=== PATIENT | male | born 1940 | race Hispanic/Latino ===

== ENCOUNTER 2018-07-07 13:57 | Inpatient (IN) | payer BC, MEDICAID ==
[~2018-07-07 13:57] MED LIST: ISOVUE-370 76%-LOCM 1 ML ONE
[2018-07-07] MEDS ORDERED: niCARdipine 20MG In NaCl 20 MG/200 ML BAG ONE (14:10)
[2018-07-07] MEDS ORDERED: Nitroglycerin 50 MG/250 ML BOT 250 ML ONE (14:10)
[2018-07-07 14:28] LABS: #Basophils 0.1 thou/uL (0.0-0.2); #Eosinphils 0.4 thou/uL (0.0-0.7); #Lymphocytes 3.2 thou/uL (1.20-3.40); #Monocytes 0.4 thou/uL (0.11-0.59); %Basophils 1.2 % (0.0-1.0); %Eosinophils 5.3 % (0.0-10.0); %Lymphocytes 44.6 % (21.0-51.0); Hemoglobin 12.3 g/dL (14.0-18.0); Mean Corpuscular HGB CONC 33.3 g/dL (32.0-36.0); Mean Corpuscular Hemoglobin 33.4 pg (27.0-31.0); Mean Platelet Volume 9.8 fL (7.4-10.4); Platelet Count 145 thou/uL (130-400); RBC Distribution Width 13.5 % (11.5-14.5); Red Blood Cell (RBC) Count 3.69 mill/uL (4.70-6.10); White Blood Cell (WBC) Count 7.1 thou/uL (4.8-10.8)
[2018-07-07 14:41] LABS: ALT (SGPT) 13 U/L (8-55); AST (SGOT) 10 U/L (5-34); Alkaline Phosphatase 99 U/L (40-150); Anion Gap 17 mmol/L (10-20); BUN (Urea Nitrogen) 41 mg/dL (8.4-25.7); CK (CPK) 95 U/L (30-200); Calc. Creatinine Clearance 0 mL/min (70-130); Calcium 9.5 mg/dL (7.8-10.44); Carbon Dioxide 28 mmol/L (23-31); Chloride 96 mmol/L (98-107); Estimated GFR-MDRD 7; Globulin 4.8 g/dL (2.4-3.5); Glucose 145 mg/dL (83-110); Protein, Total 8.8 g/dL (5.8-8.1); Sodium 138 mmol/L (136-145)
--- NOTE | 2018-07-07 14:42 | CT ---
HEAD CT NONCONTRAST: Date: 07/07/18 INDICATION: Altered mental status. FINDINGS: There is abnormal hyperdensity centered about the third ventricle compatible with acute intraventricu lar hemorrhage, as well as subarachnoid extension. There is acute hemorrhage also occupying the fourt h ventricle. There is mild parenchymal atrophy increasing CSF space overlying the convexities bilaterally. Probabl e thin linear calcific density accounts for hyperdensity along the interhemispheric falx. There is mi ld chronic microvascular ischemic disease. No evidence of calvarial fracture. Numerous probable benig n and vascular in etiology lucencies are seen within the calvarium. 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 Telephone call to care provider, Sarah Wick, placed at 1425 hours on 07/07/18. CODE CR. POS: [facility]
[2018-07-07 14:46] LABS: Prothrombin Time 13.1 SEC (12.0-14.7)
[2018-07-07] MEDS ORDERED: Ondansetron PF 4 MG/2 ML Vial ONE (14:59)
--- NOTE | 2018-07-07 15:43 | CT ---
CT ANGIOGRAM OF HEAD: Date: 07/07/18 HISTORY: Headache. Intraventricular and subarachnoid hemorrhage noted on CT. COMPARISON: Noncontrast head CT dated 07/07/18. TECHNIQUE: CT angiogram of the head is performed in the axial plane. Three-dimensional reformatted images are bob bmitted for interpretation. FINDINGS: Calvarium is intact. There is adequate aeration of the sinuses and mastoid air cells. There is no pat hologic enhancement of the brain parenchyma. Cortical giang-white matter differentiation is preserved. Hypoattenuation of the right subinsular white matter and left subinsular white matter is presumed to be due to chronic process. The previously noted intraventricular and subarachnoid hemorrhage is again demonstrated in the third ventricle, fourth ventricle, right posterior ambient cistern, right cerebellopontine angle cistern, a nd the right aspect of the suprasellar cistern. The overall degree and distribution of subarachnoid h emorrhage is stable. There is no midline shift. Basilar cisterns are patent. CT ANGIOGRAM: The distal cervical internal carotid arteries have symmetric enhancement and luminal diameter. The in tracranial internal carotid arteries have appropriate enhancement and luminal diameter. There is athe rosclerosis involving bilateral cavernous segments. Anterior Circulation: Both A1 and M1 segments have symmetric enhancement and luminal diameter. Proximal A2 segments and pro ximal MCA branches are essentially symmetric. No evidence of aneurysm in the expected region of eithe r PCOM. No evidence of aneurysm in the anterior circulation. Posterior Circulation: The distal cervical vertebral arteries are patent. There is atherosclerosis involving both intracrani al vertebral arteries. Limited evaluation of both PICA artery origins. Both vertebral arteries supply a normal appearing basilar artery. The left and right P1 segments have appropriate enhancement and l uminal diameter. No evidence of stenosis or aneurysm. IMPRESSION: 1. Redemonstration of intraventricular and subarachnoid hemorrhage. 2. No evidence of aneurysm in the anterior circulation or posterior circulation. There is no aneurys m in the expected region of either posterior communicating artery. Short-term follow-up imaging with either repeat CT angiogram of the head or conventional angiography is recommended, along with neurosu rgical consultation. POS: [facility]
[2018-07-07] MEDS ORDERED: Ondansetron PF 4 MG/2 ML Vial IVP PRN (16:49)
[2018-07-07] MEDS ORDERED: Mag-Al 1200 mg/1200 mg/30 ML UDCUP PO PRN (16:49)
[2018-07-07] MEDS ORDERED: Milk Of Magnesia 30 ML UDCUP PO PRN (16:49)
[2018-07-07] MEDS ORDERED: Morphine 4 MG/ML VIAL SLOW IVP PRN (16:55)
[2018-07-07] MEDS ORDERED: Promethazine HCl 25 MG/ML VIAL IM PRN (17:11)
[2018-07-07] MEDS: HYDROcodone/Acetaminophen 5/325 mg Tablet PO PRN (19:21)
[2018-07-07] MEDS: Promethazine 25 MG TAB PO PRN (19:23)
[2018-07-07] MEDS: niCARdipine HCl 25 MG in Sodium Chloride 0.9% 250 ML 240 ML IVPB PRN (19:31)
[2018-07-07] MEDS: Sodium Bicarbonate Tab 325 MG TAB PO SCH (21:25)
[2018-07-07] MEDS: cloNIDine 0.1 MG TAB PO SCH (22:31)
[2018-07-08] MEDS: niCARdipine HCl 25 MG in Sodium Chloride 0.9% 250 ML 240 ML IVPB PRN ×2 (00:55→16:56)
--- NOTE | 2018-07-08 00:57 | HP ---
ATTENDING PHYSICIAN: Dr. Juan M Street. HISTORY OF PRESENT ILLNESS: The patient is a 78-year-old male with past medical history of hypertension and end-stage renal disease on dialysis, who presented to the emergency department following acute onset of severe headache and vomiting approximately 45 minutes prior to arrival. Upon initial arrival, CT head was done by the emergency department, which was notable for diffuse subarachnoid hemorrhage. The patient was also noted to have significant elevation of his blood pressure with systolic blood pressure greater than 300 on a manual blood pressure. He was treated with nitro as well as a Cardene drip with improvement of this. Neurosurgery was consulted for further evaluation of his acute subarachnoid hemorrhage. I reviewed the films with Dr. Street and he recommended CTA for further evaluation. CTA was also done within the emergency department which was negative for any vascular abnormality. He reports some mild headache and persistent nausea, but is no longer having any active vomiting. He has a GCS of 15, AOX4, and has no focal neurologic deficits on my exam. His blood pressure has improved and is now systolic of 176/65. PAST MEDICAL HISTORY: Hypertension, end-stage renal disease, on dialysis. PAST SURGICAL HISTORY: Fistula to the right arm. SOCIAL HISTORY: He lives at home with his family. He does not smoke, drink, or use any drugs. ALLERGIES: HE HAS NO KNOWN DRUG ALLERGIES. REVIEW OF SYSTEMS: Per HPI. CURRENT MEDICATIONS: 1. Sevelamer 800 mg tab. 2. Clonidine 0.2 mg tab. PHYSICAL EXAMINATION: VITAL SIGNS: Heart rate is 81, blood pressure 176/65. The patient is 100% on room air. CONSTITUTIONAL: Awake, alert, no acute distress. GCS 15. HEENT: Head, normocephalic and atraumatic. Eyes, PERRLA. Extraocular movements intact. ENT; oral mucosa is pink, intact, and moist. The patient has normal voice. NECK: Nontender to palpation. Free active range of motion. No meningismus or nuchal rigidity. RESPIRATORY: Symmetric chest expansion. No evidence of dyspnea. CARDIOVASCULAR: Regular rate and rhythm. MUSCULOSKELETAL: Free active range of motion of all extremities. No focal motor weakness. No reflex asymmetry. NEUROLOGIC: A and O x4. GCS 15. No focal neurologic deficits are appreciated on my exam. ASSESSMENT AND PLAN: This is a 78-year-old male with a past medical history of hypertension, end-stage renal disease, who presented with diffuse subarachnoid hemorrhage, which was CTA negative for aneurysm. We will plan to admit him to the critical care unit where his blood pressure will be monitored closely with a systolic blood pressure goal of less than 160. We will keep him on a Cardene drip at this time and titrate as needed. We will elevate the head to 30 degrees and plan on q.1 neuro checks to regularly assess his neurologic exam. I have consulted the Medicine and Critical Care service for assistance with medical management and also his oncologist to assist with any dialysis needs. Will repeat am CT head. I have discussed this plan with Dr. Street, who is in agreement. Job ID: [id number] MTDD
--- NOTE | 2018-07-08 04:41 | CON ---
DATE OF CONSULTATION: CONSULTING PHYSICIAN: Taj Li MD REQUESTING PHYSICIAN: ER physician. REASON FOR CONSULTATION: Need for maintenance hemodialysis. IMPRESSION: 1. End-stage renal disease, hemodialysis dependent. 2. Hypertensive emergency. 3. Subarachnoid hemorrhage. PROBLEM: monitor hemodynamics closely HISTORY OF PRESENT ILLNESS: This is a 78-year-old with end-stage renal disease with INCOMPLETE DICTATION Job ID: [id number]
[2018-07-08 05:11] LABS: #Eosinphils 0.1 thou/uL (0.0-0.7); #Lymphocytes 0.9 thou/uL (1.20-3.40); #Monocytes 0.4 thou/uL (0.11-0.59); #Neutrophils 3.5 thou/uL (1.40-6.50); %Basophils 0.3 % (0.0-1.0); %Eosinophils 1.2 % (0.0-10.0); %Lymphocytes 18.2 % (21.0-51.0); %Monocytes 8.2 % (0.0-10.0); %Neutrophils 72.1 % (42.0-75.0); Hemoglobin 9.8 g/dL (14.0-18.0); Mean Corpuscular HGB CONC 33.5 g/dL (32.0-36.0); Mean Corpuscular Hemoglobin 33.5 pg (27.0-31.0); Mean Platelet Volume 9.6 fL (7.4-10.4); Platelet Count 126 thou/uL (130-400); RBC Distribution Width 13.7 % (11.5-14.5); Red Blood Cell (RBC) Count 2.92 mill/uL (4.70-6.10); White Blood Cell (WBC) Count 4.9 thou/uL (4.8-10.8)
[2018-07-08 05:37] LABS: Anion Gap 14 mmol/L (10-20); BUN (Urea Nitrogen) 48 mg/dL (8.4-25.7); Calc. Creatinine Clearance 6 mL/min (70-130); Calcium 8.7 mg/dL (7.8-10.44); Carbon Dioxide 30 mmol/L (23-31); Chloride 97 mmol/L (98-107); Estimated GFR-MDRD 6; Glucose 80 mg/dL (83-110); Potassium 4.4 mmol/L (3.5-5.1); Sodium 137 mmol/L (136-145)
--- NOTE | 2018-07-08 07:47 | HP ---
PRIMARY CARE DOCTOR: Dr. Downs. CODE STATUS: Full code. TIME OF EVALUATION: 9:00 p.m. CHIEF COMPLAINT: Severe headache. HISTORY OF PRESENT ILLNESS: This is a 78-year-old male patient, with past medical history of end-stage renal disease, hypertension, came to the hospital after having severe headache that was not relieving with any factors, the patient also related nausea, vomiting, he reported he was getting ready for some friend's arrangements for a family member and the symptoms started gradually getting worse during the day , no clear triggers, no other alleviating factors. He was found to have a subarachnoid hemorrhage and has been admitted to ICU for hypertensive emergency. He has been followed by Neurosurgery, we have been consulted for recommendations regarding rest of home medications and blood pressure control. The headache was new, 10/10. REVIEW OF SYSTEMS: CONSTITUTIONAL: No fever, chills, or generalized weakness. RESPIRATORY: No cough, sputum production, or shortness of breath. CARDIOVASCULAR: No chest pain or palpitations. GASTROINTESTINAL: The patient reported nausea, vomiting associated with a headache, no diarrhea, no abdominal pain. NEIGHBORHOOD COORDINATOR: Severe headache, dizziness, lightheadedness. GENITOURINARY: No burning on urination. EXTREMITIES: No leg swelling. All other systems were reviewed and negative except for the findings mentioned above. PAST MEDICAL HISTORY: Positive for hypertension, history of renal disease, on hemodialysis. SURGICAL HISTORY: Fistula of the right arm. SOCIAL HISTORY: The patient lives with grandson. ALLERGIES: NO KNOWN DRUG ALLERGIES. FAMILY HISTORY: Reviewed and noncontributory for current presentation. REPORTED MEDICATIONS: Sevelamer carbonate and Cardene. PHYSICAL EXAMINATION: VITAL SIGNS: On presentation, blood pressure 300/115, with heart rate 74, respiratory rate was 18. Pain was 10/10. Oxygen saturation was 96 on room air. GENERAL APPEARANCE: The patient is alert, oriented, not in acute distress. HEENT: Eyes, normal conjunctivae. Moist oral mucosa. Anicteric. No JVD. RESPIRATORY: Bilateral air entry. No rales. No wheezing. Symmetric expansion. CARDIOVASCULAR: Normal rate. Regular rhythm. No murmurs. No gallops. No edema. The patient is still on Cardene drip during my examination. ABDOMEN: Soft, normal bowel sounds. MUSCULOSKELETAL: Baseline range of motion and strength with no tenderness. SKIN: Warm and intact. No burn or rash. No redness. EXTREMITIES: Peripheral pulses are present. Capillary refill seems to be intact. NEURO: No evidence of any new focal weakness. Baseline speech. Cranial nerves seems to be intact. PSYCHIATRIC: Good mood. No anxiety. Oriented, optimal judgment. DIAGNOSTIC DATA: EKG was reviewed. The patient has a normal sinus rhythm with a rate of 74, incomplete RBBB, nonspecific ST and T-wave abnormalities. Radiology: Preliminary review of CT, Radiology's finding which favors sequela from acute ruptured aneurysm possibly the right posterior communicating artery. Given the origin of the hemorrhage, however, recommend that he get angiographic followup for confirmation as well as neurosurgical consultation. LABORATORY DATA: Reviewed. The patient had white count 7.1, hemoglobin 12.3, hematocrit 37, platelet count 145. Coagulation was normal. Chemistries: Sodium 138, potassium 3.0, chloride 96, carbon dioxide 28, anion gap 17, BUN 41, creatinine 7.8, GFR 7, glucose 145. Troponin 0.045. ASSESSMENT AND PLAN: The patient was placed in the hospital with the following medical problems under the care of Neurosurgery: 1. Critical care time more than 35 minutes. 2. Hypertensive emergency. The patient presented with intracranial bleeding and blood pressure 300+/115, patient was placed on Cardene drip, blood pressure has been controlled and systolics now 132, we will start p.o. medications and if needed we will add Cardene drip, then reassess to taper off Cardene. Neurosurgery is following this morning for recommendations in that regard. 3. Mildly elevated troponin 0.045, , mostly likely this is due to hypertensive emergency, no chest pain has been reported by the patient so far. 4. Hypokalemia, potassium 3.0: This is mild. We will replace electrolytes as needed. 5. End-stage renal disease on hemodialysis: The patient will need hemodialysis, he follows with Dr. Vang. 6. Intracranial bleeding: Presented with subarachnoid hemorrhage, neurosurgery indicates treating this problem. RISK ASSESSMENT: The patient is a high risk due to intracranial bleeding. Job ID: [id number] MTDD
[2018-07-08] MEDS: Acetaminophen 325 MG TAB PO PRN (08:28)
--- NOTE | 2018-07-08 08:30 | CT ---
PRELIMINARY REPORT/[facility]/EMERGENTY AFTER-HOURS PROCEDURE CT Head Without Contrast EXAM DATE/TIME: 07/08/2018 3:27 AM CLINICAL HISTORY: 78 years old, male; Condition or disease; Other: Sah; Patient HX: F/u sah TECHNIQUE: Axial computed tomography images of the head/brain without contrast. COMPARISON: CT Brain WO Con 07/07/2018 2:24 PM FINDINGS: Brain: Small amount of subarachnoid hemorrhage in the bilateral temporal/posterior frontal lobes was not present on prior study and may be due to persistent hemorrhage or redistribution of blood. Stable chronic ischemic change. Stable volume loss of the brain. Midline shift: No midline shift. Ventricles: Stable hemorrhage superior to the third ventricle in the region of the fornix/septum errol ucidum. Stable basilar subarachnoid hemorrhage. Stable blood in the fourth ventricle. Trace blood in the dependent lateral ventricles is new compared to the prior study. Stable ventricles. Bones/joints: Normal. No acute fracture. Sinuses: Normal as visualized. No acute sinusitis. Mastoid air cells: Normal as visualized. No mastoid effusion. Soft tissues: Normal. IMPRESSION: Small amount of subarachnoid hemorrhage in the bilateral temporal/posterior frontal lobes was not pre sent on prior study and may be due to persistent hemorrhage or redistribution of blood. Trace blood i n the dependent lateral ventricles is new compared to the prior study, likely due to redistribution of blood. Remainder of hemorrhage is stable. Thank you for allowing us to participate in the care of your patient. Dictated and Authenticated by: Sincere Lao MD 07/08/2018 3:52 AM Central Time ([place] & [place]) FINAL REPORT HEAD CT NONCONTRAST: FINDINGS/IMPRESSION: Agree with the preliminary interpretation provided above. Reference is made to the 07/07/[address] Recommend continued imaging followup. POS: [facility]
[2018-07-08] MEDS: Calcitriol 0.25 MCG CAP PO SCH (08:31)
[2018-07-08] MEDS: cloNIDine 0.1 MG TAB PO SCH ×2 (08:31→20:43)
[2018-07-08] MEDS: Ferrous Sulfate 325 MG TAB PO SCH (08:31)
[2018-07-08] MEDS: Sodium Bicarbonate Tab 325 MG TAB PO SCH ×2 (08:31→20:43)
[2018-07-08] MEDS: Lisinopril 20 MG TAB PO SCH (08:31)
--- NOTE | 2018-07-08 10:20 | PRG ---
DATE OF SERVICE: 07/08/2018 SURGEON: Juan M Street MD. SUBJECTIVE: This patient was seen and examined. I agree with Rebecca Garcia's evaluation on 07/07/2018. The patient is a 78-year-old male with end-stage renal disease, who had sudden onset of severe headache and hypertensive crisis. CT scan reveals diffuse subarachnoid hemorrhage localized to the fourth ventricle and posterior fossa in particular. CT angiography is negative for intracranial aneurysm. Repeat CT scan this morning is unchanged. The patient is alert and generally appropriate, although he is Frisian-speaking only. He has no focal deficit. IMPRESSION AND PLAN: Angiographically negative subarachnoid hemorrhage. We will continue with ICU care today, advance his diet and activity, and continue with blood pressure control. Job ID: [id number]
--- NOTE | 2018-07-08 18:37 | PDOC.PN ---
- Subjective Encounter Start Date: 07/08/18 Encounter Start Time: 18:30 Subjective: f/u for SAH secondary to HTN emergency on Cardene gtt. Some residual -: IGLESIAS but improved. - Objective MAR Reviewed: Yes Vital Signs & Weight: Vital Signs (12 hours) Temp Pulse Pulse BP BP BP Pulse Ox 07/08/18 16:00 98.1 F 07/08/18 12:00 98.7 F 07/08/18 10:34 55 L 65 117/55 L 161/70 H 07/08/18 08:50 68 75 170/78 H 152/67 H 07/08/18 08:31 179/92 H 07/08/18 07:34 96 Pulse Ox Pulse Ox 07/08/18 16:00 07/08/18 12:00 07/08/18 10:34 99 100 07/08/18 08:50 99 99 07/08/18 08:31 07/08/18 07:34 Weight Weight 127 lb 13.89 oz Most Recent Monitor Data Heart Rate from ECG 67 NIBP 130/66 NIBP BP-Mean 87 Respiration from ECG 14 SpO2 98 I&O: 07/07/18 07/08/18 07/09/18 06:59 06:59 06:59 Intake Total 477 636 Output Total 100 0 Balance 377 636 Result Diagrams: 07/08/18 04:57 07/08/18 04:57 Additional Labs: Laboratory Tests 07/07/18 07/07/18 07/07/18 14:12 14:12 14:12 Hgb 12.3 L Potassium 3.0 L Creatinine 7.80 H Troponin I 0.045 H Radiology Reviewed by me: Yes (CT brain - SAH similar to previous study) EKG Reviewed by me: Yes (Tele - SR) Phys Exam - Physical Examination Constitutional: NAD HEENT: PERRLA, sclera anicteric, oral pharynx no lesions Neck: no nodes, no JVD, supple, full ROM Respiratory: no wheezing, no rales, no rhonchi, clear to auscultation bilateral S1, S2 Cardiovascular: RRR, no significant murmur, no rub, gallop Gastrointestinal: soft, non-tender, no distention, positive bowel sounds Musculoskeletal: no edema, pulses present Neurological: normal sensation, moves all 4 limbs Psychiatric: A&O x 3 Skin: normal turgor, cap refill <2 seconds Dx/Plan (1) Hypertensive emergency Code(s): I16.1 - HYPERTENSIVE EMERGENCY Status: Acute Comment: Continue Cardene gtt, resume home BP regimen and titrate to optimal response (2) Subarachnoid hemorrhage Code(s): I60.9 - NONTRAUMATIC SUBARACHNOID HEMORRHAGE, UNSPECIFIED Status: Acute Comment: Secondary to #1, medical mgmt currently, serial CT imaging (3) Hypokalemia Code(s): E87.6 - HYPOKALEMIA Status: Acute Comment: CCU electrolyte replacement protocol, serial K+ monitoring (4) End stage renal disease on dialysis Code(s): N18.6 - END STAGE RENAL DISEASE; Z99.2 - DEPENDENCE ON RENAL DIALYSIS Status: Chronic Comment: HD per Renal service - Plan PT/OT, family welfare social work professor, DVT proph w/SCDs Continue aggressive support -: Cardene gtt -: Resume home BP regimen -: HD per Renal service -: AM lab: BMP, CBC * .
--- NOTE | 2018-07-08 20:52 | CON ---
DATE OF CONSULTATION: 07/08/2018 SERVICE: Pulmonary Medicine. REASON FOR CONSULT: ICU patient. HISTORY OF PRESENT ILLNESS: The patient is a 78-year-old male with past medical history significant for end-stage renal disease and hypertension. He was in his usual state of health until the 07 of July when he had a sudden onset of severe headache. Ultimately, he presented to the emergency department and a CT of the head was done demonstrating diffuse subarachnoid hemorrhage. Overnight, he ended up going through a diagnostic procedure, which did not demonstrate any significant aneurysmal lesion. As such, he is in the ICU with close blood pressure monitoring. His neurological exam remains nonfocal. His headache has actually little improved compared to presentation. He currently denies any fevers or chills. Overnight events were not present. PAST MEDICAL HISTORY: 1. End-stage renal disease. 2. Hypertension. 3. History of subarachnoid hemorrhage. 4. Anemia of chronic renal disease. PAST SURGICAL HISTORY: 1. AV fistula. 2. Prior temporary dialysis catheter in the right chest wall with subsequent removal. SOCIAL HISTORY: Negative for alcohol, tobacco, or illicit drug use. FAMILY HISTORY: Noncontributory. ALLERGIES: NO KNOWN DRUG ALLERGIES. MEDICATIONS: List of his inpatient medications was reviewed. No specific updates were made at this time. REVIEW OF SYSTEMS: General; head, ears, eyes, nose, throat; cardiovascular; respiratory; GI; ; musculoskeletal; neurologic; and skin are negative except as mentioned in the HPI. PHYSICAL EXAMINATION: VITAL SIGNS: Afebrile, pulse 45, blood pressure 123/58, saturation 99% on room air. GENERAL: The patient is awake and alert, in no apparent distress. LUNGS: Decent air entry. There is no prolonged expiratory phase or wheezing present. HEART: Normal rate. Regular. ABDOMEN: Soft, nontender, and nondistended. Bowel sounds are positive. MUSCULOSKELETAL: No cyanosis or clubbing. No pitting in the bilateral lower extremities. NEUROLOGIC: Grossly nonfocal. LABORATORY DATA: WBC 4.9, hemoglobin 9.8, and platelets 126,000. INR 1.0. Creatinine 8.89. Basic metabolic profile is otherwise unremarkable. Liver function studies are negative. CK-MB is normal. Troponin gently up trends to 0.045. IMAGING STUDIES: 1. CT of the brain demonstrates a subarachnoid hemorrhage, which is extending a little bit more. There is no significant midline shift. 2. CTA of the [place] demonstrates no evidence of aneurysm in the anterior circulation and posterior circulation. 3. Angiography of the head did not demonstrate an aneurysm. ASSESSMENT: 1. Subarachnoid hemorrhage. 2. End-stage renal disease. 3. Hypertension. DISCUSSION AND PLAN: We will follow the patient neurologically through time. Supportive measures will be continued. Pulmonary Critical Care will continue to follow but at this point, he is clearly protecting his airway. There is certainly no indication for advanced interventions. Blood pressure target will be per Neurosurgery's recommendation. Critical Care will follow in this location. 70 minutes have been devoted to this patient in various activities. I personally reviewed all imaging studies and laboratory data noted within this document. For fifty percent of this time, I was interacting with the patient at the bedside or coordinating care with the care team. For the remainder of the time I was immediately available to the patient in the hospital unit. Job ID: [id number] MTDD
--- NOTE | 2018-07-09 01:10 | CON ---
DATE OF CONSULTATION: CONSULTING PHYSICIAN: Taj Li MD REQUESTING PHYSICIAN: Dr. Suero. REASON FOR CONSULTATION: Need for maintenance hemodialysis. IMPRESSION: 1. End-stage renal disease, hemodialysis dependent. 2. Hypertensive emergency. 3. Subarachnoid hemorrhage. PLAN: 1. The patient to be dialyzed today in accordance with his dialysis schedule, but will avoid the use of anticoagulants as an outpatient. We will inform the outpatient dialysis unit to avoid use of anticoagulants. 2. Adjust blood pressure medications to optimize hemodynamics. HISTORY OF PRESENT ILLNESS: A 78-year-old gentleman with end-stage renal disease, who presented with severe headache and imaging studies did review evidence of intracranial bleed. The patient seems to be doing better, undergoing physical therapy at this point and mentating okay. PAST MEDICAL HISTORY: Significant for hypertension, end-stage renal disease. ALLERGIES: NO KNOWN DRUG ALLERGIES. SOCIAL HISTORY: Denies alcohol, tobacco, or illicit drug use. REVIEW OF SYSTEMS: As documented in the body of the history. All the other systems were reviewed and found not to be significantly related to present illness. PHYSICAL EXAMINATION: VITAL SIGNS: On examination, the patient was noted with the following vital signs: Blood pressure 132/63, pulse 61, respiratory rate of 15, O2 saturations are 99%. HEENT: Unremarkable. CARDIOVASCULAR SYSTEM: First and second heart sounds were heard. RESPIRATORY SYSTEM: Clear to auscultation. DIGESTIVE SYSTEM: Revealed a benign abdomen. Positive bowel sounds. EXTREMITIES: No peripheral edema. SKIN EXAMINATION: No new gross rash. LYMPHATICS: No peripheral lymphadenopathy. SUMMARY: A 78-year-old gentleman who presented here with severe headache, noted to have evidence of intracranial bleed. Thank you for this consultation. We will follow with you. Job ID: [id number]
[2018-07-09 05:28] LABS: Band 1 % (5-11); Eosinophils 7 % (0-10); Lymphocytes 22 % (21-51); MDiff Complete? YES; Mean Corpuscular HGB CONC 33.1 g/dL (32.0-36.0); Mean Corpuscular Hemoglobin 33.5 pg (27.0-31.0); Mean Platelet Volume 10.1 fL (7.4-10.4); Monocytes 6 % (0-10); Neutrophil 64 % (42-75); Platelet Count 118 thou/uL (130-400); Platelet Morphology Comment Appears Decreased; RBC Distribution Width 13.6 % (11.5-14.5); White Blood Cell (WBC) Count 4.6 thou/uL (4.8-10.8)
[2018-07-09 05:37] LABS: Anion Gap 13 mmol/L (10-20); BUN (Urea Nitrogen) 21 mg/dL (8.4-25.7); Calc. Creatinine Clearance 9 mL/min (70-130); Calcium 8.3 mg/dL (7.8-10.44); Carbon Dioxide 26 mmol/L (23-31); Chloride 100 mmol/L (98-107); Estimated GFR-MDRD 10; Glucose 82 mg/dL (83-110); Potassium 4.3 mmol/L (3.5-5.1); Sodium 135 mmol/L (136-145)
--- NOTE | 2018-07-09 09:11 | PRG ---
DATE OF SERVICE: 07/09/2018 SUBJECTIVE: The patient is a 78-year-old male with past medical history of poorly controlled hypertension and end-stage renal disease, who suffered a sudden headache and vomiting with hypertensive emergency and was found to have acute subarachnoid hemorrhage. This has been stable on repeat CT imaging. He has had no overnight events. Reports he is feeling well. Denies any headache or any other significant complaints this morning. He does unfortunately remain on the Cardene to control his blood pressure. The Medicine Service is assisting in management of his blood pressure. The patient this morning is awake, alert, oriented x4, in no acute distress. He has free active range of motion of all extremities. No focal motor deficits. I used a estate planning director during my exam. The patient remains neurologically stable and has had resolution of his headache and vomiting. He continues to have significantly poorly controlled hypertension, requiring Cardene. We will continue to ask Medicine Service to assist with blood pressure management and once the patient is off the Cardene, he can safely be transferred to the floor. Job ID: [id number]
[2018-07-09] MEDS: cloNIDine 0.1 MG TAB PO SCH ×2 (09:27→20:39)
[2018-07-09] MEDS: Ferrous Sulfate 325 MG TAB PO SCH (09:27)
[2018-07-09] MEDS: Lisinopril 20 MG TAB PO SCH (09:28)
[2018-07-09] MEDS: Calcitriol 0.25 MCG CAP PO SCH (09:32)
[2018-07-09] MEDS: Sodium Bicarbonate Tab 325 MG TAB PO SCH ×2 (09:32→21:09)
--- NOTE | 2018-07-09 09:42 | PRG ---
DATE OF SERVICE: 07/09/2018 SERVICE: Pulmonary Medicine. INTERVAL HISTORY: The patient is doing fine from a respiratory standpoint. Denies any current shortness of breath or chest discomfort. He has good strength bilaterally. There has been no interval change to his condition. There were no overnight events. PHYSICAL EXAMINATION: VITAL SIGNS: Afebrile, pulse 56, blood pressure 147/67, respirations 10, and saturation 99% on room air. GENERAL: The patient is awake and alert, in no apparent distress. LUNGS: Excellent air entry. There is no prolonged expiratory phase or wheezing present. HEART: Normal rate, regular. ABDOMEN: Soft, nontender, and nondistended. Bowel sounds are positive. MUSCULOSKELETAL: No cyanosis or clubbing. There is no pitting in the bilateral lower extremities. NEUROLOGIC: Grossly nonfocal. LABORATORY DATA: WBC 4.6, hemoglobin 10.0, and platelets 118,000. INR 1.0. Creatinine 5.36. Basic metabolic profile is otherwise unremarkable. ASSESSMENT: 1. Subarachnoid hemorrhage. 2. End-stage renal disease. 3. Hypertension. DISCUSSION AND PLAN: We will continue our frequent neurologic evaluations. The patient will remain in the ICU until cleared for transition to the floor by Neurosurgery. Pulmonary will continue to follow along in this location, but when he lands on the floor, I will sign off. We will continue to trend his sodiums through time. If they continue to fall off into tomorrow, intervention may be required. Job ID: [id number] MTDD
[2018-07-09 10:33] LABS: Sodium 134 mmol/L (136-145)
[2018-07-09] MEDS: hydrALAZINE 20 MG/ML VIAL SLOW IVP PRN ×2 (14:41→20:40)
[2018-07-09] MEDS: HYDROcodone/Acetaminophen 5/325 mg Tablet PO PRN (23:41)
[2018-07-10] MEDS: Ferrous Sulfate 325 MG TAB PO SCH (08:53)
[2018-07-10] MEDS: cloNIDine 0.1 MG TAB PO SCH ×2 (08:53→20:36)
[2018-07-10] MEDS: Calcitriol 0.25 MCG CAP PO SCH (08:53)
[2018-07-10] MEDS: Sodium Bicarbonate Tab 325 MG TAB PO SCH (08:53)
[2018-07-10] MEDS: Lisinopril 20 MG TAB PO SCH ×2 (08:53→20:37)
--- NOTE | 2018-07-10 09:59 | PRG ---
DATE OF SERVICE: 07/10/2018 SUBJECTIVE: This is a 78-year-old male with past medical history of poorly controlled hypertension and end-stage renal disease, on dialysis, who presented on 07/07/2018 for acute subarachnoid hemorrhage. His repeat scan was stable and he has remained neurologically intact throughout his course. His blood pressure is now being controlled with oral medications. Seems to cover around systolic of 170s. Goal would be SBP closer to 160. He was transitioned to the stroke unit yesterday and has no complaints on his visit this morning. OBJECTIVE: GENERAL: He is awake, alert, and oriented x4. HEENT: Pupils are equal and reactive to light. EXTREMITIES: He has free active range of motion of all extremities, 5/5 strength throughout. NEUROLOGIC: No focal neurologic deficits are appreciated. The patient appears to be doing well following his transition from the CCU to the stroke unit. We will continue to monitor his blood pressure closely and have our medicine colleagues adjust accordingly. No further NS intervention anticipated at this time. Will sign over to medicine. Job ID: [id number] [facility]
[2018-07-10] MEDS: hydrALAZINE 20 MG/ML VIAL SLOW IVP PRN (11:54)
--- NOTE | 2018-07-10 15:59 | PDOC.PN ---
- Subjective Encounter Start Date: 07/10/18 Encounter Start Time: 16:00 Subjective: f/u for HTN emergency with SAH medically managed. No new complaints -: but BP remains labile. Currently receiving HD. - Objective MAR Reviewed: Yes Vital Signs & Weight: Vital Signs (12 hours) Temp Pulse Pulse Pulse Resp BP BP 07/10/18 12:10 149/66 H 07/10/18 11:56 97.5 F L 55 L 12 07/10/18 11:54 54 L 190/84 H 07/10/18 10:39 65 62 195/87 H 07/10/18 08:53 176/77 H 07/10/18 08:00 07/10/18 07:52 97.9 F 54 L 16 07/10/18 04:00 97.6 F 51 L 18 BP BP Pulse Ox 07/10/18 12:10 07/10/18 11:56 190/84 H 97 07/10/18 11:54 07/10/18 10:39 231/97 H 07/10/18 08:53 07/10/18 08:00 97 07/10/18 07:52 182/79 H 97 07/10/18 04:00 148/67 H 100 Weight Weight 128 lb 14.4 oz Most Recent Monitor Data Heart Rate from ECG 54 NIBP 115/52 NIBP BP-Mean 73 Respiration from ECG 3 SpO2 99 I&O: 07/09/18 07/10/18 07/11/18 06:59 06:59 06:59 Intake Total 984 1450 480 Output Total 0 121 Balance 984 1329 480 Result Diagrams: 07/09/18 04:35 07/09/18 10:02 Additional Labs: Laboratory Tests 07/07/18 07/07/18 07/07/18 14:12 14:12 14:12 Hgb 12.3 L Potassium 3.0 L Creatinine 7.80 H Troponin I 0.045 H EKG Reviewed by me: Yes (Tele - SR) Phys Exam - Physical Examination Constitutional: NAD HEENT: PERRLA, sclera anicteric, oral pharynx no lesions Neck: no nodes, no JVD, supple, full ROM Respiratory: no wheezing, no rales, no rhonchi, clear to auscultation bilateral S1, S2 Cardiovascular: RRR, no significant murmur, no rub, gallop Gastrointestinal: soft, non-tender, no distention, positive bowel sounds Musculoskeletal: no edema, pulses present Neurological: normal sensation, moves all 4 limbs Psychiatric: A&O x 3 Skin: normal turgor, cap refill <2 seconds Dx/Plan (1) Hypertensive emergency Code(s): I16.1 - HYPERTENSIVE EMERGENCY Status: Acute Comment: Resume home BP regimen, start Hydralazine 50mg TID, continue Lisinopril 20mg daily, continue Clonidine 0.2mg BID (2) Subarachnoid hemorrhage Code(s): I60.9 - NONTRAUMATIC SUBARACHNOID HEMORRHAGE, UNSPECIFIED Status: Acute Comment: Secondary to #1, medical mgmt currently, serial CT imaging (3) Hypokalemia Code(s): E87.6 - HYPOKALEMIA Status: Acute Comment: Resolved, serial monitoring (4) End stage renal disease on dialysis Code(s): N18.6 - END STAGE RENAL DISEASE; Z99.2 - DEPENDENCE ON RENAL DIALYSIS Status: Chronic Comment: HD per Renal service - Plan PT/OT, social professionals, out of bed/ambulate, DVT proph w/SCDs Stable currently -: Add Hydralazine 50mg TID -: Continue Clonidine 0.2mg BID -: HD per Renal service -: Hold all anticoagulation/ASA * .
[2018-07-10] MEDS ORDERED: hydrALAZINE 25 MG TAB PO SCH (17:00)
[2018-07-10] MEDS: HYDROcodone/Acetaminophen 5/325 mg Tablet PO PRN (18:19)
--- NOTE | 2018-07-10 18:37 | PRG ---
DATE OF SERVICE: 07/10/2018 SUBJECTIVE: The patient was seen and examined. Seems to be doing much better. Noted with the following vital signs. OBJECTIVE: VITAL SIGNS: Afebrile, temperature 97.5, pulse 55, blood pressure 149/66 and gets up to 231/97. HEENT: Unremarkable. Moist oral Mucosa. NECK: Supple. No conjunctival injection or icterus. CARDIOVASCULAR SYSTEM: First and second heart sounds were heard. RESPIRATORY SYSTEM: Clear to auscultation. DIGESTIVE SYSTEM: Revealed a benign abdomen with positive bowel sounds. EXTREMITIES: No peripheral edema. SKIN: No new gross rash. LYMPHATICS: No peripheral lymphadenopathy. IMPRESSION: 1. Hypertensive emergency. 2. Intracranial bleed. 3. End-stage renal disease, hemodialysis dependent. 4. Hyperparathyroidism. PLAN: 1. Discontinue sodium bicarbonate supplementation. 2. Discontinue ferrous sulfate. 3. Adjust antihypertensive medications to optimize hemodynamics. 4. Renal replacement therapy per the patient's schedule. 5. Further management to be dependent on the clinical course. Job ID: [id number]
[2018-07-10] MEDS: hydrALAZINE 25 MG TAB PO SCH (20:37)
[2018-07-10] MEDS: Acetaminophen 325 MG TAB PO PRN (20:37)
[2018-07-11] MEDS: hydrALAZINE 20 MG/ML VIAL SLOW IVP PRN ×3 (00:48→16:32)
[2018-07-11] MEDS: Acetaminophen 325 MG TAB PO PRN ×2 (08:59→20:36)
[2018-07-11] MEDS: cloNIDine 0.1 MG TAB PO SCH ×2 (08:59→20:28)
[2018-07-11] MEDS: hydrALAZINE 25 MG TAB PO SCH ×3 (09:00→20:28)
[2018-07-11] MEDS: Lisinopril 20 MG TAB PO SCH ×2 (09:00→20:28)
[2018-07-11] MEDS: Calcitriol 0.25 MCG CAP PO SCH (09:00)
[2018-07-11] MEDS: HYDROcodone/Acetaminophen 5/325 mg Tablet PO PRN (10:18)
[2018-07-11] MEDS: Labetalol HCl 100 MG/20 ML VIAL SLOW IVP PRN ×2 (12:28→17:58)
--- NOTE | 2018-07-11 13:29 | EKG ---
Test Reason : HTN Blood Pressure : / mmHG Vent. Rate : 074 BPM Atrial Rate : 074 BPM P-R Int : 150 ms QRS Dur : 110 ms QT Int : 392 ms P-R-T Axes : 048 044 037 degrees QTc Int : 435 ms Normal sinus rhythm Possible Left atrial enlargement Incomplete right bundle branch block Nonspecific ST and T wave abnormality Abnormal ECG Confirmed by TINO GAMBINO ([id number]), news editor IWONA GEORGES ([id number]) on 07/11/2018 1:28:49 PM Referred By: MD GAMBINO Confirmed By:TINO GAMBINO
--- NOTE | 2018-07-11 14:03 | PDOC.PN ---
- Subjective Encounter Start Date: 07/11/18 Encounter Start Time: 14:00 Subjective: f/u for HTN emergency and SAH. BP remains labile per nursing. -: No new complaints. Occasional IGLESIAS. No unilateral weakness. - Objective MAR Reviewed: Yes Vital Signs & Weight: Vital Signs (12 hours) Temp Pulse Pulse Pulse Resp BP BP 07/11/18 13:06 07/11/18 12:28 65 185/82 H 07/11/18 12:00 97.4 F L 65 16 07/11/18 10:21 131/59 L 07/11/18 09:46 72 225/95 H 07/11/18 09:00 72 192/84 H 07/11/18 08:59 192/84 H 07/11/18 08:34 52 L 73 205/85 H 07/11/18 08:00 98.4 F 72 16 07/11/18 04:02 98.1 F 63 20 07/11/18 02:19 65 BP BP Pulse Ox 07/11/18 13:06 160/74 H 07/11/18 12:28 07/11/18 12:00 185/82 H 97 07/11/18 10:21 07/11/18 09:46 07/11/18 09:00 07/11/18 08:59 07/11/18 08:34 191/83 H 07/11/18 08:00 173/77 H 93 L 07/11/18 04:02 138/65 96 07/11/18 02:19 118/57 L Weight Weight 129 lb 14.4 oz Most Recent Monitor Data Heart Rate from ECG 54 NIBP 115/52 NIBP BP-Mean 73 Respiration from ECG 3 SpO2 99 I&O: 07/10/18 07/11/18 07/12/18 06:59 06:59 06:59 Intake Total 1450 480 240 Output Total 121 Balance 1329 480 240 Result Diagrams: 07/09/18 04:35 07/09/18 10:02 Additional Labs: Laboratory Tests 07/07/18 07/07/18 07/07/18 14:12 14:12 14:12 Hgb 12.3 L Potassium 3.0 L Creatinine 7.80 H Troponin I 0.045 H EKG Reviewed by me: Yes (Tele - SR) Phys Exam - Physical Examination Constitutional: NAD smiling, alert HEENT: PERRLA, sclera anicteric, oral pharynx no lesions Neck: no nodes, no JVD, supple, full ROM Respiratory: no wheezing, no rales, no rhonchi, clear to auscultation bilateral S1, S2 Cardiovascular: RRR, no significant murmur, no rub, gallop Gastrointestinal: soft, non-tender, no distention, positive bowel sounds Musculoskeletal: no edema, pulses present Neurological: normal sensation, moves all 4 limbs Psychiatric: A&O x 3 Skin: normal turgor, cap refill <2 seconds Dx/Plan (1) Hypertensive emergency Code(s): I16.1 - HYPERTENSIVE EMERGENCY Status: Acute Comment: Resume home BP regimen, start Hydralazine 50mg TID, continue Lisinopril 20mg daily, continue Clonidine 0.2mg BID (2) Subarachnoid hemorrhage Code(s): I60.9 - NONTRAUMATIC SUBARACHNOID HEMORRHAGE, UNSPECIFIED Status: Acute Comment: Secondary to #1, medical mgmt currently, serial CT imaging (3) Hypokalemia Code(s): E87.6 - HYPOKALEMIA Status: Acute Comment: Resolved, serial monitoring (4) End stage renal disease on dialysis Code(s): N18.6 - END STAGE RENAL DISEASE; Z99.2 - DEPENDENCE ON RENAL DIALYSIS Status: Chronic Comment: HD per Renal service - Plan plan discussed w/ family, PT/OT, social media specialist, out of bed/ambulate, DVT proph w/SCDs Stable currently -: Add Norvasc 5mg daily -: Continue Clonidine 0.2mg BID -: Continue Hydralazine 50mg TID -: OOB/ambulate with PT * 2D Echo * Likely home in 24-48h
[2018-07-11] MEDS ORDERED: Amlodipine 5 MG TAB PO SCH (14:30)
[2018-07-11] MEDS: Promethazine 25 MG TAB PO PRN (15:24)
--- NOTE | 2018-07-11 23:48 | PRG ---
DATE OF SERVICE: 07/11/2018 SUBJECTIVE: The patient noted with the following vital signs. OBJECTIVE: VITAL SIGNS: Afebrile, temperature 98.6, pulse 71, respiratory rate 16, O2 saturation 96%, blood pressure 155/64. HEENT: Unremarkable. CARDIOVASCULAR: First and second sounds were heard. RESPIRATORY: Clear to auscultation. DIGESTIVE: Revealed a benign abdomen with positive bowel sounds. EXTREMITIES: No peripheral edema. SKIN: No new gross rash. LYMPHATICS: No peripheral lymphadenopathy. IMPRESSION: 1. Hypertensive emergency. 2. Intracranial bleed. 3. Labile hypertension, seems to be gradually improving. 4. End-stage renal disease, hemodialysis dependent. PLAN: 1. Continue to adjust antihypertensive to optimize hemodynamics. 2. Hemodialysis per Friday, Friday, and Friday schedule. 3. Further management to be dependent on the clinical course. Job ID: [id number]
[2018-07-12] MEDS: hydrALAZINE 20 MG/ML VIAL SLOW IVP PRN (00:23)
[2018-07-12] MEDS: hydrALAZINE 25 MG TAB PO SCH ×2 (08:50→15:47)
[2018-07-12] MEDS: Calcitriol 0.25 MCG CAP PO SCH (08:51)
[2018-07-12] MEDS: Lisinopril 20 MG TAB PO SCH (08:51)
[2018-07-12] MEDS: cloNIDine 0.1 MG TAB PO SCH (08:51)
[2018-07-12] MEDS ORDERED: Amlodipine 5 MG TAB PO SCH ×2 (09:00→14:30)
[2018-07-12 12:06] VITALS: TEMP 98.3
[2018-07-12] MEDS: Acetaminophen 325 MG TAB PO PRN (15:48)
[2018-07-12 17:06] VITALS: BP 129/62
--- NOTE | 2018-07-12 17:36 | DIS ---
DATE OF ADMISSION: 07/07/2018 DATE OF DISCHARGE: 07/12/2018 DISCHARGE DIAGNOSES: 1. Hypertensive emergency, resolved. 2. Subarachnoid hemorrhage secondary to number one, medically managed. 3. Hypokalemia, resolved. 4. End-stage renal disease with hemodialysis. CONSULTATIONS: 1. Dr. Street with Neurosurgical Service. 2. Dr. Taj Li with Nephrology Service. 3. Dr. Romo with Pulmonology Critical Care Service. PERTINENT LAB AND X-RAY FINDINGS: Potassium ranged between 3.0 to 4.3, creatinine ranged between 5.36 to 8.89. CBC showed a hemoglobin ranging between 9.[address] of the brain without contrast dated 07/07/2018 showed acute intraventricular hemorrhage of the 3rd and 4th ventricle with subarachnoid extension. CT angiogram of lumbee of [place], dated 07/07/2018 showed intraventricular and subarachnoid hemorrhage. No evidence of aneurysm in the anterior or posterior circulation. CT of the brain dated 07/08/2018 showed small amount of subarachnoid hemorrhage in the bilateral temporal/posterior frontal lobes. Remainder of the hemorrhage is stable. HOSPITAL COURSE: The patient was admitted to the Critical Care Unit after initially presenting with acute onset of severe headache and emesis. The patient underwent extensive evaluation including CT of the brain showing evidence of diffuse subarachnoid hemorrhage in the context of severe systolic blood pressure elevation greater than 300 manually. The patient was placed on a Cardene infusion and admitted to the Critical Care Unit. The patient exhibited no specific focal neurologic deficits other than headache, initially presenting with a Loretta Coma Scale of 15 and oriented x4. The patient was noted with labile hypertension throughout the hospital course with additional antihypertensives including hydralazine and Norvasc. The patient was transitioned out of the Critical Care Unit after stabilization with neurosurgical recommendations for medical management and no acute surgical intervention. The patient received hemodialysis on a maintenance basis throughout the hospital course without complication. The patient transferred to the Stroke Unit, where the patient remained clinically stable without further progression or decompensation. I have examined the patient at the time of discharge and discussed followup instructions. The patient and family verbalized understanding and in agreement and ready for discharge on 07/12/2018. DISCHARGE MEDICATIONS: 1. Clonidine 0.2 mg p.o. b.i.d. 2. Feosol 325 mg p.o. daily. 3. Norvasc 10 mg p.o. daily. 4. Hydralazine 50 mg p.o. t.i.d. 5. Zestril 20 mg p.o. b.i.d. FOLLOWUP: The patient will follow up with Dr. Lidya Downs within 7 days of discharge. The patient will follow up with Dr. Taj Li with hemodialysis 3 times per week. CONDITION ON DISCHARGE: Fair. ACTIVITY: Ad-christopher. DIET: Heart healthy and renal. CODE STATUS: Full. DISPOSITION: Home, 07/12/2018. Total time preparing and coordinating discharge, 34 minutes. Job ID: [id number]
== END 2018-07-12 17:19 | disposition home or self-care (01) | DRG 64 ==
LOC: ERS 13:57 → CCU 15:55 → 2SE 07-09 22:47
PROVIDERS: ADMIT Neurological Surgery; ATTEND Neurological Surgery
DX: I60.9 Nontraumatic subarachnoid hemorrhage, unspecified (principal); N18.6 End stage renal disease; I12.0 Hypertensive chronic kidney disease with stage 5 chronic kidney disease or end stage renal disease; I16.1 Hypertensive emergency; Z99.2 Dependence on renal dialysis; E87.6 Hypokalemia
CPT/HCPCS: 36415; 70450; 70496; 80048; 80053; 82550; 82553; 84484; 85007; 85025; 85027; 85610; 85730; 90935; 93005; 93306; 96365; 96366; 96374; 96375; G0257; J0131; J0360; J2405; J3490; J7050

== ENCOUNTER 2018-10-06 10:25 | Inpatient (IN) | payer BC, SELFPAY ==
[2018-10-06] MEDS ORDERED: Ondansetron ODT 8 MG TAB ONE (11:19)
[2018-10-06 11:48] LABS: #Lymphocytes 0.4 thou/uL (1.20-3.40); #Monocytes 1.1 thou/uL (0.11-0.59); #Neutrophils 10.3 thou/uL (1.40-6.50); %Basophils 0.2 % (0.0-1.0); %Eosinophils 0.1 % (0.0-10.0); %Lymphocytes 3.1 % (21.0-51.0); %Monocytes 9.6 % (0.0-10.0); %Neutrophils 86.9 % (42.0-75.0); Hemoglobin 10.8 g/dL (14.0-18.0); Mean Corpuscular HGB CONC 32.6 g/dL (32.0-36.0); Mean Corpuscular Hemoglobin 34.4 pg (27.0-31.0); Mean Platelet Volume 8.2 fL (7.4-10.4); Platelet Count 241 thou/uL (130-400); RBC Distribution Width 12.3 % (11.5-14.5); Red Blood Cell (RBC) Count 3.15 mill/uL (4.70-6.10); White Blood Cell (WBC) Count 11.8 thou/uL (4.8-10.8)
[2018-10-06 12:00] LABS: ALT (SGPT) 17 U/L (8-55); AST (SGOT) 13 U/L (5-34); Albumin 4.1 g/dL (3.4-4.8); Alkaline Phosphatase 73 U/L (40-150); Anion Gap 17 mmol/L (10-20); BUN (Urea Nitrogen) 31 mg/dL (8.4-25.7); Bilirubin, Total 0.6 mg/dL (0.2-1.2); Calc. Creatinine Clearance 0 mL/min (70-130); Calcium 9.9 mg/dL (7.8-10.44); Carbon Dioxide 27 mmol/L (23-31); Estimated GFR-MDRD 6; Globulin 5.4 g/dL (2.4-3.5); Glucose 110 mg/dL (83-110); Potassium 3.5 mmol/L (3.5-5.1); Protein, Total 9.5 g/dL (5.8-8.1)
[2018-10-06 12:04] LABS: Chloride 93 mmol/L (98-107); Sodium 133 mmol/L (136-145)
--- NOTE | 2018-10-06 12:23 | RAD ---
SINGLE VIEW OF THE CHEST: 10/06/18 COMPARISON: 05/03/14 HISTORY: High fever and dizziness. Cough and congestion. FINDINGS: Single view of the chest shows a normal sized cardiomediastinal silhouette with atherosclerotic calci fications in the aorta. There is no evidence of consolidation, mass, or pleural effusion. IMPRESSION: No evidence of acute cardiopulmonary disease. POS: [facility]
[2018-10-06] MEDS ORDERED: Piperacillin/Tazobactam 4.5 GM VIAL ONE (12:28)
[2018-10-06] MEDS ORDERED: Acetaminophen 325 MG TAB PO PRN (14:09)
[2018-10-06] MEDS ORDERED: Zolpidem Tartrate 5 MG TAB PO PRN (14:09)
[2018-10-06] MEDS ORDERED: Ondansetron ODT 4 MG TAB PO PRN (14:09)
[2018-10-06] MEDS ORDERED: Vancomycin HCl 1 GM in Sodium Chloride 0.9% 250 ML 300 ML IVPB SCH (14:15)
--- NOTE | 2018-10-06 15:08 | HP ---
PRIMARY CARE PROVIDER: Stribe. PRIMARY PAINTER APPRENTICE: Dr. Taj Li. Referred to [facility] for sepsis, end-stage renal disease. The patient is an elderly gentleman who presents with fever and diarrhea for the past 2 days. He missed dialysis yesterday because he was feeling unwell. He went to dialysis today, and because of his fever and diarrhea, he was sent to the emergency room. He has had no nausea or vomiting. No abdominal pain. No documented fever. He has had some chills and sweats. PAST MEDICAL HISTORY: Pertinent for end-stage renal disease, hypertension, and chronic hemodialysis. PAST SURGICAL HISTORY: Fistula in right arm. SOCIAL HISTORY: Lives with his family. No tobacco, alcohol, or illicit drugs. Full code status. , next of kin. ALLERGIES: NO KNOWN DRUG ALLERGIES. FAMILY HISTORY: Negative for end-stage renal disease. CURRENT MEDICATIONS: They did not bring his medicines with him. At the time of his last admission in June, he was discharged on clonidine 0.2 mg twice a day, Feosol 325 a day, Norvasc 10 mg a day, hydralazine 50 mg 3 times a day, and Zestril 20 mg p.o. b.i.d. REVIEW OF SYSTEMS: GENERAL: He has had dizziness with near syncope yesterday. EYES: No double vision or flashing lights. EAR, NOSE, AND THROAT: No ear pain or drainage. No nasal bleeding. No trouble swallowing. CARDIAC: No chest pain, orthopnea, or paroxysmal nocturnal dyspnea. RESPIRATIONS: He has had a cough for about 8 days, nonproductive. No wheezing or asthma. GASTROINTESTINAL: See present illness. GENITOURINARY: He makes scant urine, no blood. MUSCULOSKELETAL: No pain or swelling in his arms or legs. NEUROLOGICAL: No strokes, seizures, or focal weakness. PSYCHIATRIC: No anxiety or depression. HEME/LYMPH: No tender or swollen lymph nodes in axilla, inguinal, or cervical area. SKIN: No bruising, bleeding, or rash. PHYSICAL EXAMINATION: GENERAL: He is alert, oriented, cooperative, Amharic speaking only. The history was obtained from the family member who was quite fluent and did an excellent job. VITAL SIGNS: Blood pressure 117/55, pulse 79, respirations 21, temperature 99.3. HEAD, EYES, EARS, NOSE, AND THROAT: Revealed pupils are equal, round, and reactive. Extraocular movements are intact. Sclerae are white. Tympanic membranes clear. Nose clear. Oral mucous membranes were dry. He had multiple missing teeth. NECK: No jugular venous distention, adenopathy, or thyromegaly. CHEST: Clear to auscultation and percussion. HEART: Regular rate and rhythm. First and second heart sounds are clear. There are no appreciated murmurs or gallops. ABDOMEN: Soft. Bowel sounds are normal. No hepatosplenomegaly. No mass. No rebound. EXTREMITIES: Revealed no cyanosis, clubbing, or edema. PULSES: Carotid, radial, and femoral pulses intact. Pedal pulses diminished. SKIN: Warm and dry. Skin turgor is poor. HEME/LYMPH: No tender or swollen lymph nodes in axilla, inguinal, or cervical area. NEUROLOGICAL: Cranial nerves 2 through 12 are intact. Moved all extremities. DIAGNOSTIC DATA: Chest x-ray, no cardiomegaly, CHF, or infiltrate reviewed by me. EKG revealed regular sinus rhythm, right bundle branch block reviewed by me. LABORATORY DATA: White count 11.8 with an absolute neutrophilia, hemoglobin 10.8, platelet count 241,000. Sodium 133, potassium 3.5, CO2 of 27, BUN 31, creatinine 8.15. Lactic acid 3.0. ADMITTING DIAGNOSES: 1. Sepsis syndrome with fever, tachycardia, leukocytosis, and lactic acidosis. 2. End-stage renal disease. No acute criteria for hemodialysis. 3. Hypertension. 4. Diarrhea. PLAN: 1. Admit. 2. Consult Dr. Vang. 3. Blood cultures have been drawn. 4. Stool workup for infectious diseases including C difficile. 5. Consult Dr. Vang. 6. We will start cefepime and vancomycin. Vancomycin will be monitored by the pharmacy. He will only need doses post hemodialysis. Job ID: [id number]
[2018-10-06] MEDS ORDERED: Vancomycin HCl 250 MG in Sodium Chloride 0.9% 100 ML IVPB SCH (16:30)
[2018-10-06] MEDS ORDERED: Vancomycin HCl 1 GM in Premix Bag 1 BAG IVPB SCH (16:30)
[2018-10-06] MEDS ORDERED: HOLD VANCOMYCIN FOR LEVEL >20 FS SCH (16:30)
[2018-10-06] MEDS ORDERED: Vancomycin HCl 750 MG in Sodium Chloride 0.9% 250 ML 250 ML IVPB SCH (16:30)
[2018-10-06] MEDS ORDERED: Vancomycin HCl 500 MG in Sodium Chloride 0.9% 100 ML IVPB SCH (16:30)
[2018-10-06 17:19] VITALS: BMI 21.2
[2018-10-06] MEDS: Heparin 5,000 UNITS/ML VIAL SC SCH ×2 (17:36→21:34)
[2018-10-06] MEDS ORDERED: Cefepime 2 GM in Sodium Chloride 0.9% 100 ML IVPB SCH (21:00)
[2018-10-07 06:45] LABS: #Lymphocytes 0.8 thou/uL (1.20-3.40); #Monocytes 0.6 thou/uL (0.11-0.59); #Neutrophils 4.9 thou/uL (1.40-6.50); %Basophils 0.2 % (0.0-1.0); %Eosinophils 0.2 % (0.0-10.0); %Lymphocytes 12.8 % (21.0-51.0); %Monocytes 9.6 % (0.0-10.0); %Neutrophils 77.2 % (42.0-75.0); Hemoglobin 10.6 g/dL (14.0-18.0); Mean Corpuscular HGB CONC 33.3 g/dL (32.0-36.0); Mean Platelet Volume 8.5 fL (7.4-10.4); Platelet Count 220 thou/uL (130-400); RBC Distribution Width 12.3 % (11.5-14.5); Red Blood Cell (RBC) Count 3.04 mill/uL (4.70-6.10); White Blood Cell (WBC) Count 6.3 thou/uL (4.8-10.8)
[2018-10-07 07:12] LABS: Anion Gap 17 mmol/L (10-20); BUN (Urea Nitrogen) 49 mg/dL (8.4-25.7); Calc. Creatinine Clearance 4 mL/min (70-130); Calcium 9.3 mg/dL (7.8-10.44); Carbon Dioxide 25 mmol/L (23-31); Chloride 94 mmol/L (98-107); Estimated GFR-MDRD 5; Glucose 76 mg/dL (83-110); Potassium 4.9 mmol/L (3.5-5.1); Sodium 131 mmol/L (136-145)
[2018-10-07] MEDS: Heparin 5,000 UNITS/ML VIAL SC SCH (07:41)
--- NOTE | 2018-10-07 13:05 | PQF ---
CLINICAL DOCUMENTATION IMPROVEMENT CLARIFICATION FORM: ICD-10 Updated PLEASE DO AN ADDENDUM TO THE PROGRESS NOTE WITH ANY DOCUMENTATION UPDATES OR ADDITIONS AND CARRY THROUGH TO DC SUMMARY. THANK YOU. DATE: 10/07/18 ATTN: DR. HUANG Please exercise your independent, professional judgment in responding to the clarification form. Clinical indicators are provided on the bottom of this form for your review Please check appropriate box(s) to clarify if the following diagnosis has been ruled in or ruled out: "SEPSIS" [ ] Ruled in diagnosis [ ] Continue to treat [ ] Resolved [ ] Ruled out diagnosis [ ] Other diagnosis [ ] Unable to determine In addition, please specify: Present on Admission (POA): [ ] Yes [ ] No [ ] Unable to determine For continuity of documentation, please document condition throughout progress notes and discharge summary. Thank You. CLINICAL INDICATORS - SIGNS / SYMPTOMS / LABS ER NOTE: "SEPSIS" H&P: "SEPSIS SYNDROME" TEMP 99.3 WBC 11.8 LACTIC ACID 3.0 RISKS: CHILLS AND SWEATS (H&P) VOMITING AND DIARRHEA ADVANCED AGE TREATMENT: IV LEVAQUIN (ER) IV VANCOMYCIN (ER-PRESENT) IV ZOSYN (ER) IV MAXIPIME (STARTED 10/07) BLOOD AND STOOL CULTURES (This form is maintained as a part of the permanent medical record) 2014 [employer]. All Rights Reserved [email or web address] Office: [phone] [email or web address]
[2018-10-07] MEDS: hydrALAZINE 25 MG TAB PO SCH ×2 (14:16→20:56)
--- NOTE | 2018-10-07 20:23 | CON ---
DATE OF CONSULTATION: CONSULTING PHYSICIAN: Taj Li MD REQUESTING PHYSICIAN: Dr. Hodges. REASON FOR CONSULTATION: Need for maintenance hemodialysis. IMPRESSION: 1. End-stage renal disease hemodialysis dependent on a Friday, Friday, and Friday schedule. 2. Fever with some respiratory distress, pneumonitis. PLAN: 1. The patient does not have any emergent indication for renal replacement therapy, therefore, we will await for the patient's schedule dialysis on Friday. 2. Further management will be dependent on the clinical course. HISTORY OF PRESENT ILLNESS: A 78-year-old gentleman with end-stage renal disease on Friday, Friday, and Friday, who presented here with cough, chest discomfort, and fever, and has been admitted for possible sepsis. The patient need for hemodialysis necessitated this Renal consultation. PAST MEDICAL HISTORY: Significant for end-stage renal disease, hypertension, MEDICATION: Reviewed as documented on [employer]. ALLERGIES: NO KNOWN DRUG ALLERGIES. FAMILY HISTORY: Not significantly related to present illness. SOCIAL HISTORY: No alcohol. No tobacco. No illicit drug use. REVIEW OF SYSTEMS: As documented in the body of the history. All the other systems were reviewed and found not to be significantly related to present illness. PHYSICAL EXAMINATION: GENERAL: The patient was found to be somewhat ill looking. VITAL SIGNS: Noted with the following vital signs. Afebrile, temperature 97.2, pulse 70, respiratory rate of 18, O2 saturation 93% with blood pressure 96/55. HEENT: Unremarkable. Moist oral mucosa. NECK: Supple. No conjunctival injection or icterus. CARDIOVASCULAR SYSTEM: First and second heart sounds were heard. RESPIRATORY SYSTEM: Clear to auscultation. DIGESTIVE SYSTEM: Revealed a benign abdomen with positive bowel sounds. EXTREMITIES: No peripheral edema. SKIN: No new gross rash. LYMPHATICS: No peripheral lymphadenopathy. SUMMARY: A 78-year-old gentleman with end-stage renal disease, hemodialysis dependent, who presented here with chest discomfort, cough, and fever. Thank you for this consultation. We will follow with you. Job ID: [id number]
[2018-10-07] MEDS ORDERED: Cefepime 0.5 GM, Admixture Fee 1 EACH in Sodium Chloride 0.9% 100 ML IVPB SCH (21:00)
--- NOTE | 2018-10-07 22:23 | PDOC.PN ---
- Subjective Encounter Start Date: 10/07/18 Encounter Start Time: 15:00 Patient seen and examined for Sepsis. Diarrhea +. Nausea improving. No new complaints. No overnight events - Objective Resuscitation Status - Order Detail: 10/06/18 14:05 Resuscitation Status Routine Resuscitation Status: FULL: Full Resuscitation MAR Reviewed: Yes Vital Signs & Weight: Vital Signs (12 hours) Temp Pulse Resp BP BP BP BP 10/07/18 20:56 64 95/55 L 10/07/18 20:00 10/07/18 19:55 98.8 F 64 20 10/07/18 16:53 97.8 F 77 18 94/57 L 94/57 L 10/07/18 14:16 69 10/07/18 13:00 97.4 F L 69 18 106/61 BP Pulse Ox 10/07/18 20:56 10/07/18 20:00 94 L 10/07/18 19:55 95/55 L 94 L 10/07/18 16:53 108/65 92 L 10/07/18 14:16 10/07/18 13:00 97 Weight Weight 112 lb 6.4 oz I&O: 10/06/18 10/07/18 10/08/18 06:59 06:59 06:59 Intake Total 550 600 Balance 550 600 Result Diagrams: 10/07/18 06:23 10/07/18 06:23 Radiology Reviewed by me: Yes (CXR - no infiltrate) Phys Exam - Physical Examination Constitutional: NAD HEENT: PERRLA Neck: no JVD Respiratory: no wheezing, no rales, no rhonchi no accessory muscle use Cardiovascular: RRR, no rub no heaves/pulsations Gastrointestinal: soft, non-tender, no distention, positive bowel sounds Musculoskeletal: no edema, pulses present Neurological: non-focal, normal sensation, moves all 4 limbs Psychiatric: normal affect, A&O x 3 Skin: no rash Dx/Plan - Plan DVT proph w/SCDs IMPRESSION: Sepsis due to Acute Gastroenteritis Lactic acidosis ESRD on HD HTN h/o SAH 07/11 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 PLAN: Await Stool w/u Cultures neg Cont Vancomycin and Cefepime AM labs Dialysis per Nephrology Review of Systems - Review of Systems Respiratory: negative: Cough, Dry, Shortness of Breath, Hemoptysis, SOB with Excertion, Pleuritic Pain, Sputum, Wheezing Cardiovascular: negative: chest pain, palpitations, orthopnea, paroxysmal nocturnal dyspnea, edema, light headedness, other - Medications/Allergies Allergies/Adverse Reactions: Allergies Allergy/AdvReac Type Severity Reaction Status Date / Time No Known Allergies Allergy Verified 03/08/14 13:51 Medications: Current Medications Acetaminophen (Tylenol) 650 mg PO Q4H PRN PRN Reason: Headache/Fever/Mild Pain (1-3) Amlodipine Besylate (Norvasc) 10 mg PO DAILY [facility] Atorvastatin Calcium (Lipitor) 5 mg PO DAILY [facility] Benzonatate (Tessalon) 100 mg PO TIDPRN PRN PRN Reason: Cough Guaifenesin/Dextromethorphan (Mucinex Dm) 1 tab PO Q12HR [facility] Hydralazine HCl (Apresoline) 50 mg PO TID [facility] Last Admin: 10/07/18 20:56 Dose: Not Given Vancomycin HCl 1 gm/ Device 200 mls @ 200 mls/hr IVPB [facility] Vancomycin HCl 750 mg/ Sodium (Chloride) 250 mls @ 250 mls/hr IVPB [facility] Vancomycin HCl 500 mg/ Sodium (Chloride) 100 mls @ 100 mls/hr IVPB [facility] Vancomycin HCl 250 mg/ Sodium (Chloride) 100 mls @ 100 mls/hr IVPB [facility] Last Admin: 10/07/18 11:55 Dose: 100 mls Cefepime HCl 0.5 gm/Miscellaneous Medication 1 each/ Sodium Chloride 100 mls @ 200 mls/hr IVPB 2100 [facility] Last Admin: 10/07/18 20:56 Dose: 100 mls Lisinopril (Zestril) 10 mg PO DAILY [facility] Miscellaneous Medication (Pharmacy To Dose) 1 each IVPB PRN PRN PRN Reason: Pharmacy to dose Hold Vancomycin For (Level >20) 0 each FS .AT DIALYSIS [facility] Ondansetron HCl (Zofran Odt) 4 mg PO Q6H PRN PRN Reason: Nausea/Vomiting Zolpidem Tartrate (Ambien) 5 mg PO HSPRN PRN PRN Reason: Insomnia
[2018-10-07] MEDS: Benzonatate 100 MG CAP PO PRN (23:57)
[2018-10-08 06:54] LABS: #Eosinphils 0.1 thou/uL (0.0-0.7); #Lymphocytes 0.9 thou/uL (1.20-3.40); #Monocytes 0.6 thou/uL (0.11-0.59); #Neutrophils 2.8 thou/uL (1.40-6.50); %Basophils 0.6 % (0.0-1.0); %Eosinophils 2.9 % (0.0-10.0); %Lymphocytes 20.7 % (21.0-51.0); %Monocytes 13.1 % (0.0-10.0); %Neutrophils 62.7 % (42.0-75.0); Hemoglobin 10.4 g/dL (14.0-18.0); Mean Corpuscular HGB CONC 32.8 g/dL (32.0-36.0); Mean Corpuscular Hemoglobin 34.4 pg (27.0-31.0); Platelet Count 214 thou/uL (130-400); RBC Distribution Width 12.3 % (11.5-14.5); Red Blood Cell (RBC) Count 3.01 mill/uL (4.70-6.10); White Blood Cell (WBC) Count 4.5 thou/uL (4.8-10.8)
[2018-10-08 07:08] LABS: ALT (SGPT) 17 U/L (8-55); AST (SGOT) 26 U/L (5-34); Albumin 3.4 g/dL (3.4-4.8); Alkaline Phosphatase 68 U/L (40-150); Anion Gap 15 mmol/L (10-20); BUN (Urea Nitrogen) 29 mg/dL (8.4-25.7); Bilirubin, Total 0.5 mg/dL (0.2-1.2); Calc. Creatinine Clearance 6 mL/min (70-130); Calcium 8.8 mg/dL (7.8-10.44); Carbon Dioxide 26 mmol/L (23-31); Chloride 96 mmol/L (98-107); Estimated GFR-MDRD 8; Globulin 4.5 g/dL (2.4-3.5); Glucose 84 mg/dL (83-110); Lipase 59 U/L (8-78); Magnesium 2.3 mg/dL (1.6-2.6); Potassium 3.7 mmol/L (3.5-5.1); Protein, Total 7.9 g/dL (5.8-8.1); Sodium 133 mmol/L (136-145)
[2018-10-08 07:22] VITALS: BP 105/63; TEMP 97.9
[2018-10-08] MEDS: Benzonatate 100 MG CAP PO PRN (08:08)
[2018-10-08] MEDS: hydrALAZINE 25 MG TAB PO SCH (08:14)
[2018-10-08] MEDS ORDERED: Lisinopril 10 MG TAB PO SCH (09:00)
[2018-10-08] MEDS ORDERED: Atorvastatin Calcium 10 MG TAB PO SCH (09:00)
[2018-10-08] MEDS ORDERED: Amlodipine 10 MG TAB PO SCH (09:00)
[2018-10-08] MEDS ORDERED: guaiFENesin/DM ER PO SCH (09:00)
--- NOTE | 2018-10-08 12:40 | DIS ---
DATE OF ADMISSION: 10/06/2018 DATE OF DISCHARGE: 10/08/2018 DISCHARGE DISPOSITION: Home. FOLLOWUP: 1. Follow up with primary care physician, Dr. Lidya Downs in 1 week. 2. Follow up with Dr. Vang for maintenance hemodialysis. ALLERGIES: NO KNOWN DRUG ALLERGIES. DISCHARGE MEDICATIONS: 1. Doxycycline 100 mg b.i.d. for next 5 days. 2. Mucinex as needed. 3. All other home medications were left unchanged. The patient was seen and examined on the day of discharge. Denies any new complaints. No chest pain, shortness of breath, palpitations reported. He continues to have mild nonproductive cough. BRIEF HOSPITAL COURSE: The patient is a 78-year-old male with end-stage renal disease, on hemodialysis, presented to the hospital with fever, cough along with diarrhea of last 2 days duration. His initial vital signs in the emergency room showed temperature 99.3 with respirations of 16, pulse rate of 91, blood pressure of 119/58. His WBC count on admission was 11.8 with lymphopenia at 3.1% lymphocytes. His lactic acid was 3.0. He was admitted to the hospital with diagnosis of acute viral syndrome. His stool workup was essentially negative except for positive fecal lactoferrin. He was placed on broad-spectrum antibiotics that has been discontinued. His blood cultures have been negative so far. Please follow up on the final blood cultures. He appears stable for discharge. DIAGNOSTIC TESTS: Lactic acid on admission 3.0, repeat 1.8. Sodium 133. WBC on admission 11.8, at discharge 4.5. Lymphocyte on admission was 3.1%, at discharge 20.7%. FINAL DIAGNOSES: 1. Sepsis secondary to viral syndrome. The patient probably has acute gastroenteritis with upper respiratory tract infection. 2. Lactic acidosis secondary to dehydration, resolved. 3. End-stage renal disease, on hemodialysis. 4. Hypertension. 5. History of subarachnoid hemorrhage in June 2018. 6. Anemia secondary to renal disease. 7. Macrocytosis. The patient was advised to take multivitamin, vitamin B12, and folic acid. PLAN: Plan of care was discussed with the patient in detail. He stated understanding. Job ID: [id number]
--- NOTE | 2018-10-08 16:38 | PRG ---
DATE OF SERVICE: 10/08/2018 SUBJECTIVE: The patient noted with the following vital signs. OBJECTIVE: VITAL SIGNS: Afebrile, temperature 98.4, pulse 63, respiratory rate of 20, and O2 saturation 96% with blood pressure of HEENT: Unremarkable. CARDIOVASCULAR SYSTEM: First and second heart sounds were heard. RESPIRATORY SYSTEM: Clear to auscultation. DIGESTIVE SYSTEM: Revealed a benign abdomen. Positive bowel sounds. EXTREMITIES: No peripheral edema. SKIN: No new gross rash. IMPRESSION: 1. End-stage renal disease, on hemodialysis. 2. Sepsis on treatment. PLAN: 1. The patient to continue with current dialysis schedule. 2. Further management to be dependent on the clinical course. Job ID: [id number]
== END 2018-10-08 14:28 | disposition home or self-care (01) | DRG 871 ==
LOC: ERS 10:25 → T4-B 16:51
PROVIDERS: ADMIT Internal Medicine; ATTEND Internal Medicine
PROC: 5A1D70Z Performance of Urinary Filtration, Intermittent, Less than 6 Hours Per Day (ICD-10-PCS; principal; 2018-10-07)
DX: A41.9 Sepsis, unspecified organism (principal); N18.6 End stage renal disease; I12.0 Hypertensive chronic kidney disease with stage 5 chronic kidney disease or end stage renal disease; E87.2 Acidosis; Z99.2 Dependence on renal dialysis; K52.9 Noninfective gastroenteritis and colitis, unspecified; D63.1 Anemia in chronic kidney disease; J06.9 Acute upper respiratory infection, unspecified; D75.89 Other specified diseases of blood and blood-forming organs
CPT/HCPCS: 36415; 71045; 80048; 80053; 80202; 83605; 83630; 83690; 83735; 85025; 87040; 87324; 87328; 87329; 87449; 87804; 87899; 93005; J0692; J1644; J1956; J2543; J3370; J3490